=== PATIENT | male | born 1965 ===

== ENCOUNTER 2018-02-07 20:25 | Emergency (ER) | payer MEDICAID ==
[2018-02-07 20:33] VITALS: BMI 25.8
--- NOTE | 2018-02-07 21:13 | ED PDOC ---
Arrival/HPI - General Historian: Patient <Dimas Samano - Last Filed: 02/07/18 22:38> - History of Present Illness Time/Duration: 1 hour Symptom Onset: Sudden Symptom Course: Resolved Activities at Onset: Emotional Upset <Nishant Marques - Last Filed: 02/08/18 00:35> - General Chief Complaint: Seizure Time Seen by Provider: 02/07/18 20:27 - History of Present Illness Narrative History of Present Illness (Text): 02/07/18 21:10 Pt is a 52 yo M with PMH of seizures presents to ED due to a witnessed seizure by his niece, who is at bedside. According to the niece, the patient was in a stress situation when he passed out and witnessed multiple seizures last a few seconds each time. Patient denies tongue biting, urine or bowel incontinence, generalized body aches, trauma, confusion, ZAPATA, CP, SOB, n/v/d, abdominal pain, fever, chills, or dizziness. PMD: Nick (Dimas Samano) Past Medical History - Infectious Disease Hx of Infectious Diseases: None - Neurological Hx Seizures: Yes - Psychiatric Hx Substance Use: No - Surgical History Other/Comment: back surgery, metal plate in head - Anesthesia Hx Anesthesia: Yes Hx Anesthesia Reactions: No Hx Malignant Hyperthermia: No <Dimas Samano - Last Filed: 02/07/18 22:38> - Provider Review Nursing Documentation Reviewed: Yes <Nishant Marques - Last Filed: 02/08/18 00:35> Family/Social History Family/Social History: No Known Family HX Smoking Status: Heavy Smoker > 10 Cigarettes Daily Hx Alcohol Use: No Hx Substance Use: No <Dimas Samano - Last Filed: 02/07/18 22:38> - Physician Review Nursing Documentation Reviewed: Yes <Nishant Marques - Last Filed: 02/08/18 00:35> Allergies/Home Meds <Dimas Samano - Last Filed: 02/07/18 22:38> <Nishant Marques - Last Filed: 02/08/18 00:35> Allergies/Adverse Reactions: Allergies aspirin Allergy (Verified 02/07/18 20:47) RASH Penicillins Allergy (Verified 02/07/18 20:47) RASH Home Medications: Home Meds Medication Instructions Recorded Confirmed Levetiracetam [Keppra] 500 mg PO TID 02/07/18 02/07/18 Phenobarbital [Phenobarbital] 1 tab PO TID 02/07/18 02/07/18 Review of Systems - Physician Review All systems were reviewed & negative as marked: Yes (12 point ROS reviewed and is negative other than what is stated in HPI.) <Dimas Samano - Last Filed: 02/07/18 22:38> - Physician Review All systems were reviewed & negative as marked: Yes <Nishant Marques - Last Filed: 02/08/18 00:35> Physical Exam Vital Signs Reviewed: Yes Temperature: Afebrile Blood Pressure: Normal Pulse: Regular Respiratory Rate: Normal Appearance: Positive for: Well-Appearing Pain Distress: None Mental Status: Positive for: Alert and Oriented X 3 Finger Stick Blood Glucose: 85 - Systems Exam Head: Present: Atraumatic, Normocephalic Pupils: Present: PERRL Extroacular Muscles: Present: EOMI Conjunctiva: Present: Normal Ears: Present: Normal Mouth: Present: Moist Mucous Membranes, Normal Tounge Pharnyx: Present: Normal Neck: Present: Normal Range of Motion Respiratory/Chest: Present: Clear to Auscultation. No: Respiratory Distress, Wheezes, Rales, Rhonchi Cardiovascular: Present: Regular Rate and Rhythm, Normal S1, S2. No: Murmurs, Rub, Gallop Abdomen: No: Tenderness, Distention, Rebound, Guarding Upper Extremity: Present: Normal Inspection Lower Extremity: Present: Normal Inspection Neurological: Present: GCS=15, CN II-XII Intact, Speech Normal, Motor Func Grossly Intact, Normal Sensory Function, Normal Cerebellar Funct Skin: Present: Warm, Dry, Normal Color. No: Rashes Psychiatric: Present: Alert, Oriented x 3, Normal Insight, Normal Concentration <Dimas Samano - Last Filed: 02/07/18 22:38> Vital Signs Temp Pulse Resp BP Pulse Ox 02/07/18 22:14 98.7 F 72 18 114/72 96 02/07/18 20:35 77 16 121/74 98 02/07/18 20:33 78 24 121/74 98 Medical Decision Making <Dimas Samano - Last Filed: 02/07/18 22:38> <Nishant Marques - Last Filed: 02/08/18 00:35> ED Course and Treatment: 02/07/18 21:14 52 yo M with PMH of seizures presents to ED for witnessed seizure with no post- ictal period. Plan: - Seizure precautions - Monitor - Reassess and disposition 02/07/18 21:39 Patient able to eat without difficulty and is medically stable for discharge. Patient was advised to follow up with neurologist and not to operate heavy machinery until follow up with neurologist. (Dimas Samano) 02/07/18 Patient Seen With Resident: In agreement with resident note which contains more detail about the patient. Patient was seen and evaluated with resident. Came up with plan and treatment together. (Nishant Marques) - Lab Interpretations Lab Results: Lab Results 02/07/18 20:31: POC Glucose (mg/dL) 85 Disposition/Present on Arrival - Present on Arrival Any Indicators Present on Arrival: No History of DVT/PE: No History of Uncontrolled Diabetes: No Urinary Catheter: No History of Decub. Ulcer: No History Surgical Site Infection Following: None - Disposition Have Diagnosis and Disposition been Completed?: Yes Disposition Time: 22:38 Patient Plan: Discharge <Dimas Samano - Last Filed: 02/07/18 22:38> <Nishant Marques - Last Filed: 02/08/18 00:35> - Disposition Diagnosis: Anxiety Disposition: HOME/ ROUTINE Condition: STABLE Discharge Instructions (ExitCare): Anxiety, Adult (DC) Additional Instructions: 1. Follow up with neurologist within [address] or operate heavy machinery until follow up with neurologist 3. Take medications as prescribed 4. Return to ED if symptoms worsen RONALDO GUZMAN, thank you for letting us take care of you today. Your provider was Nishant Marques MD and you were treated for SEIZURE. The emergency medical care you received today was directed at your acute symptoms. If you were prescribed any medication, please fill it and take as directed. It may take several days for your symptoms to resolve. Return to the Emergency Department if your symptoms worsen, do not improve, or if you have any other problems. Please contact your doctor or call one of the physicians/clinics you have been referred to that are listed on the Patient Visit Information form that is included in your discharge packet. Bring any paperwork you were given at discharge with you along with any medications you are taking to your follow up visit. Our treatment cannot replace ongoing medical care by a primary care provider outside of the emergency department. Thank you for allowing the [facility] team to be part of your care today. Forms: [employer] ([place])
[2018-02-07 22:58] VITALS: BP 114/72; PULSE 72; RESP 18; TEMP 98.7; O2SAT 96
== END 2018-02-07 22:20 | disposition home or self-care (01) ==
LOC: ED 20:25
DX: F41.9 Anxiety disorder, unspecified (principal)